=== PATIENT | male | born 1970 | race Caucasian/White ===

== ENCOUNTER 2017-04-20 11:20 | Emergency (ER) | payer SELFPAY ==
[2017-04-20 11:44] VITALS: BP 115/67; PULSE 67; TEMP 99; BMI 28.1
--- NOTE | 2017-04-20 12:31 | PDOC ---
History of Present Illness - General Chief Complaint: Eye Problem Stated Complaint: RT EYE PAIN Time Seen by Provider: 04/20/17 12:18 - History of Present Illness Initial Comments: 04/20/17 12:26 CHIEF COMPLAINT: eye problem HISTORY OF PRESENT ILLNESS: 46 yo M with no significant PMH presents to fast track with painful bump on R lower eyelid . Patient reports the pain is worse when he is showering and the water is hitting the bump. He denies any change in vision "other than I can't see well because this bump is kind of in my ways sometimes." PAST MEDICAL HISTORY: Denies past medical history FAMILY HISTORY: Denies SOCIAL HISTORY: Denies tobacco, alcohol, illicit drug use. SURGICAL HISTORY: Denies ALLERGIES: No known drug allergies REVIEW OF SYSTEMS General/Constitutional: Denies fever or chills. Denies weakness, weight change. HEENT: Bump to R lower eye lid. Denies change in vision. Denies ear pain or discharge. Denies sore throat. PHYSICAL EXAM General Appearance: Well-appearing, appropriately dressed. No apparent distress. HEENT: 1mm x 1mm tender papule to R lower eyelid. EOMI, PERRLA, normal ENT inspection, normal voice, TMs normal, pharynx normal. No conjunctival pallor. No photophobia, scleral icterus. Respiratory/Chest: Lungs CTAB. Cardiovascular: RRR. S1, S2. Musculoskeletal/Extremities: Normal inspection. FROM of all extremities, normal capillary refill. Pelvis Stable. No CVA tenderness. No tenderness to extremities, pedal edema, swelling, erythema or deformity. Integumentary: Appropriate color, dry, warm. No cyanosis, erythema, jaundice or rash Neurologic: glass vial filler II-XII intact. Fully oriented, alert. Appropriate mood/affect. Motor strength 5/5. No appreciable EOM palsy, facial droop or sensory deficit. Past History - Past Medical History Allergies/Adverse Reactions: Allergies Allergy/AdvReac Type Severity Reaction Status Date / Time No Known Allergies Allergy Verified 04/20/17 11:40 Home Medications: Ambulatory Orders Erythromycin 0.5% Eye Ointment [Erythromycin 0.5% Eye Ointment -] 1 applic OD TID #1 tube 04/20/17 COPD: No Other medical history: denies. - Suicide/Smoking/Psychosocial Hx Smoking History: Never smoked *Physical Exam - Vital Signs Last Vital Signs Temp Pulse Resp BP Pulse Ox 99 F 67 19 115/67 97 04/20/17 11:41 04/20/17 11:41 04/20/17 11:41 04/20/17 11:41 04/20/17 11:41 Medical Decision Making - Medical Decision Making 04/20/17 12:31 46 yo M with no significant PMH presents to fast track with painful bump on R lower eyelid Clinical presentation consistent with hordeolum of R eye. Advised patient to use warm compresses 4-5 times daily for 15 minutes and to f/ u with ortho if symptoms persist. Advised patient of signs and symptoms for return to ER; patient verbalized undersatnding and agrees to plan. *DC/Admit/Observation/Transfer Diagnosis at time of Disposition: Hordeolum externum right lower eyelid - Discharge Dispostion Disposition: HOME Condition at time of disposition: Stable Admit: No - Prescriptions Prescriptions: Erythromycin 0.5% Eye Ointment [Erythromycin 0.5% Eye Ointment -] 1 applic OD TID #1 tube - Referrals - Patient Instructions Printed Discharge Instructions: DI for Hordeolum Additional Instructions: Please apply a warm compress to your eyes 4-6 times daily, for 15 minutes each time. You may [employer] the prescription if your symptoms persist past 2-3 days after using the warm compresses. Follow up with the ophthamologist if symptoms persist past one week. If you develop any change in vision, worsening pain, fever, chills, vomiting, or diarrhea, or any new or worsening symptoms, please return to the ER. Por favor, aplique kimani compresa caliente a rossi ojos de 4 a 6 veces al da, miguel 15 minutos cada vez. Puede retirar la receta si rossi sntomas persisten m s all de 2-3 colin despus de usar las compresas tibias. Brendan un seguimiento con el oftalmlogo si los sntomas persisten ms all de kimani semana. Si desarrolla algn cambio en la visin, empeoramiento del dolor, fiebre, escalofr os, vmitos o diarrea, o cualquier sntoma nuevo o que empeora, regrese a la que de emergencias. Print Language: KOREAN - Post Discharge Activity
== END 2017-04-20 12:52 | disposition home or self-care (01) ==
LOC: JERFT 11:20
DX: H00.012 Hordeolum externum right lower eyelid (principal)
CPT/HCPCS: 99281-25

== ENCOUNTER 2023-09-02 12:12 | Emergency (ER) | payer SELFPAY ==
[2023-09-02 12:34] VITALS: BMI 28.7
[2023-09-02] MEDS ORDERED: ACETAMINOPHEN INJECTION 100 ML IVPB ONE (14:12)
[2023-09-02] MEDS ORDERED: guaiFENesin/D-METHORPHAN HB 10 ML UNIT-DOSE CUPS ONE (14:12)
[2023-09-02] MEDS: ACETAMINOPHEN 1000 MG/100 ML BAG IVPB ONE (14:19)
[2023-09-02] MEDS: guaiFENesin/D-METHORPHAN HB 10 ML UNIT-DOSE CUPS PO ONE (14:19)
[2023-09-02 14:27] LABS: BASO % 0.8 % (0-2.0); EOS % 9.2 % (0-4.5); HEMATOCRIT 42.6 % (35.4-49); HEMOGLOBIN 14.1 GM/dL (11.7-16.9); LYMPH % 14.9 % (8-40); MCH 31.7 pg (25.7-33.7); MCHC 33.1 g/dl (32.0-35.9); MEAN CELL VOLUME 95.8 fl (80-96); MEAN PLT VOLUME 7.9 fl (7.5-11.1); MONO % 17.2 % (3.8-10.2); NEUT % 57.9 % (42.8-82.8); PLATELET COUNT 176 10^3/uL (134-434); RBC 4.44 M/mm3 (4.00-5.60); WHITE BLOOD COUNT 7.1 K/mm3 (4.0-10.0)
[2023-09-02 14:52] LABS: POTASSIUM 3.9 mmol/L (3.5-5.1)
[2023-09-02 14:54] LABS: ALBUMIN 3.8 g/dl (3.4-5.0); CALCIUM 9.5 mg/dL (8.5-10.1)
[2023-09-02 14:55] LABS: BLOOD UREA NITROGEN 21.3 mg/dL (7-18)
[2023-09-02 14:57] LABS: CREATININE 0.9 mg/dL (0.55-1.3)
[2023-09-02 14:59] LABS: BILIRUBIN,TOTAL 0.2 mg/dL (0.2-1); TOT PROT 7.6 g/dl (6.4-8.2)
[2023-09-02 15:46] VITALS: BP 120/81; PULSE 59; RESP 18; TEMP 100.6
[2023-09-02] MEDS ORDERED: AMOX TR/POT CLAV 875MG/125MG TABLETS (FP) ONE (16:52)
[2023-09-02] MEDS ORDERED: IBUPROFEN 600 MG TABLET (FP) PO ONE (16:52)
[2023-09-02] MEDS: IBUPROFEN 600 MG TABLET (FP) PO ONE (16:53)
[2023-09-02] MEDS: AMOX TR/POT CLAV 875MG/125MG TABLETS (FP) PO ONE (16:53)
== END 2023-09-02 17:08 | disposition home or self-care (01) ==
LOC: JERFT 12:12 → JER 12:12 → JERFT 17:08
PROC: 3E033NZ Introduction of Analgesics, Hypnotics, Sedatives into Peripheral Vein, Percutaneous Approach (ICD-10-PCS; principal; 2023-09-02)
DX: R05.9 Cough, unspecified (principal); R09.89 Other specified symptoms and signs involving the circulatory and respiratory systems; R51.9 Headache, unspecified; R07.9 Chest pain, unspecified; R06.02 Shortness of breath; R11.0 Nausea; H92.09 Otalgia, unspecified ear; R09.82 Postnasal drip; J01.90 Acute sinusitis, unspecified; Z20.822 Contact with and (suspected) exposure to COVID-19
CPT/HCPCS: 0241U-QW; 36415; 71046-TC-FY; 80053; 84484; 85025; 93005; 93010; 99284-25; J0131